=== PATIENT | female | born 1965 | race Two or more races ===

== ENCOUNTER → 2017-09-03 | Outpatient (CLI) | payer OTHER ==
[2017-09-03 15:48] LABS: BASO % 1 % (0-3); EOS # 0.1 x10^3/uL (0.0-0.7); EOS % 2 % (0-3); HEMATOCRIT 40.6 % (36.0-47.0); HEMOGLOBIN 13.9 g/dL (12.0-15.5); LYMPH # 2.5 x10^3/uL (1.0-4.8); LYMPH % 46 % (24-48); MEAN CORPUSCULAR HEMOGLOBIN 30 pg (25-35); MEAN CORPUSCULAR HGB CONC 34 g/dL (31-37); MEAN CORPUSCULAR VOLUME 89 fL (79-100); MONO # 0.4 x10^3/uL (0.0-1.1); MONO % 7 % (0-9); NEUT # 2.4 x10^3uL (1.8-7.7); NEUT % 45 % (31-73); PLATELET COUNT 225 x10^3/uL (140-400); RED BLOOD COUNT 4.57 x10^6/uL (3.50-5.40); RED CELL DISTRIBUTION WIDTH 13.7 % (11.5-14.5); WHITE BLOOD COUNT 5.4 x10^3/uL (4.0-11.0)
[2017-09-03 16:00] LABS: ALBUMIN 3.9 g/dL (3.4-5.0); ALBUMIN/GLOBULIN RATIO 1.1 (1.0-1.7); CALCIUM 9.1 mg/dL (8.5-10.1); CREATININE 0.7 mg/dL (0.6-1.0); GFR 87.9; POTASSIUM 3.8 mmol/L (3.5-5.1); TOTAL BILIRUBIN 0.4 mg/dL (0.2-1.0); TOTAL PROTEIN 7.6 g/dL (6.4-8.2)
== END | disposition home or self-care (01) ==
LOC: LAB 14:39
PROVIDERS: ATTEND Internal Medicine Gastroenterology
DX: B19.10 Unspecified viral hepatitis B without hepatic coma (principal)
CPT/HCPCS: 36415; 80053; 82105; 85025; 86706; 87340

== ENCOUNTER → 2017-09-07 | Outpatient (CLI) | payer OTHER ==
--- NOTE | 2017-09-07 17:20 | RAD ---
Abdominal ultrasound, 09/07/2017: HISTORY: Abdominal pain The gallbladder is within normal limits in size. There is no sonographic evidence of cholelithiasis. The gallbladder sarmiento are not thickened. The common hepatic duct is of normal caliber. The visualized portions of the liver are unremarkable. The spleen is of normal size. No renal abnormality is detected. The pancreas was not clearly defined due to overlying bowel. The abdominal aorta and inferior vena cava are unremarkable. No free fluid is evident in the abdomen. IMPRESSION: No significant abdominal abnormality is detected. Electronically signed by: Caden Varner MD (09/07/2017 5:17 PM) [facility]
== END | disposition home or self-care (01) ==
LOC: US 08:45
PROVIDERS: ATTEND Internal Medicine Gastroenterology
DX: R10.84 Generalized abdominal pain (principal); Z86.19 Personal history of other infectious and parasitic diseases
CPT/HCPCS: 76700

== ENCOUNTER 2017-12-14 16:33 | Emergency (ER) | payer OTHER ==
[~2017-12-14] VITALS: Ht 149.9 cm; Wt 67.1 kg
[2017-12-14 16:50] VITALS: BP 149/71
[2017-12-14] MEDS ORDERED: TRAM-48 PO (17:36)
--- NOTE | 2017-12-14 17:36 | PHYS DOC ---
Past History Past Medical History: GERD, Other Past Surgical History: Smoking: Cigarettes Alcohol Use: None Drug Use: None Adult General Chief Complaint Chief Complaint: FOOT INJURY PAIN [facility] HPI Patient is a 52 year old female who presents with complaining of a fall yesterday at home and injury to left foot without loss of consciousness or other injuries. Patient states her pain getting worse with bearing weight. Review of Systems Review of Systems Constitutional: Denies fever or chills [] Eyes: Denies change in visual acuity, redness, or eye pain [] HENT: Denies nasal congestion or sore throat [] Respiratory: Denies cough or shortness of breath [] Cardiovascular: No additional information not addressed in HPI [] GI: Denies abdominal pain, nausea, vomiting, bloody stools or diarrhea [] : Denies dysuria or hematuria [] Musculoskeletal: Denies back pain or joint pain [] Integument: Denies rash or skin lesions [] Neurologic: Denies headache, focal weakness or sensory changes [] Endocrine: Denies polyuria or polydipsia [] All other systems were reviewed and found to be within normal limits, except as documented in this note. Allergies Allergies Allergies Uncoded Allergies Type Severity Reaction Last Updated Verified UNKNOWN ANTIBIOTIC Allergy Unknown 12/14/17 Physical Exam Physical Exam Constitutional: Well developed, well nourished, mild distress, non-toxic appearance. [] HENT: Normocephalic, atraumatic Eyes: PERRLA, EOMI, conjunctiva normal, no discharge. [] Neck: Normal range of motion, no tenderness, supple, no stridor. [] Cardiovascular:Heart rate regular rhythm, no murmur [] Lungs & Thorax: Bilateral breath sounds clear to auscultation [] Skin: Warm, dry, no erythema, no rash. [] Back: No tenderness, no CVA tenderness. [] Extremities: Left foot with edema and ecchymosis in metatarsal area with tenderness, no cyanosis, no clubbing, ROM intact, no edema. [] Neurologic: Alert and oriented X 3, normal motor function, normal sensory function, no focal deficits noted. [] Psychologic: Affect normal, judgement normal, mood normal. [] Current Patient Data Vital Signs Vital Signs Date Time Temp Pulse Resp B/P (MAP) Pulse Ox O2 Delivery O2 Flow Rate FiO2 12/14/17 16:50 98.2 83 16 98 Room Air EKG EKG [] Radiology/Procedures Radiology/[place] [address] IMAGING REPORT Signed PATIENT: ELVIE HUNTER ACCOUNT: [id number] : 1965 LOCATION: ER AGE: 52 SEX: F EXAM STATUS: DEP ER ORD. PHYSICIAN: IBETH PIERCE MD REASON: injury PROCEDURE: FOOT LEFT 3V ADDENDUM Lateral image of the left foot without overlying artifact at the great toe was provided. No suspicious process at this site. Electronically signed by: Andreas Fernandez MD (12/14/2017 6:14 PM) [facility] DICTATED AND SIGNED BY: ANDREAS FERNANDEZ MD DATE: 12/14/171813 CC: IBETH PIERCE MD; PHILLY RAMIREZ ~ Examination: FOOT LEFT 3V History: FELL DOWN THE STAIRS LAST NIGHT, PAIN/BRUISING AND SWELLING OVER MEDIAL CUNEIFORM TARSAL. Comparison/Correlation: None Findings: Total 3 images of the left foot were obtained. Joint spaces are normal. No acute fracture or bony destruction. Soft tissues are unremarkable. Overlying annotation artifact at the left great toe obscures evaluation on the lateral view. The region of the medial cuneiform bone is unremarkable. Impression: No definite fracture. Consider further evaluation if occult process is a persistent concern. Electronically signed by: Andreas Fernandez MD (12/14/2017 6:02 PM) [facility] DICTATED AND SIGNED BY: ANDREAS FERNANDEZ MD DATE: 12/14/171727 CC: IBETH PIERCE MD; PHILLY RAMIREZ ~ Course & Med Decision Making Course & Med Decision Making Pertinent Imaging studies reviewed. (See chart for details) Evaluation of patient in ER showed 52-year-old female patient injury to left foot with contusion and tenderness. X-ray did not show fracture. Tae wrap was applied and crutches was provided and patient instructed to elevate her foot and apply ice. Dragon Disclaimer Dragon Disclaimer This electronic medical record was generated, in whole or in part, using a voice recognition dictation system. Departure Departure: Impression: Primary Impression: Sprain of left foot Additional Impression: Tobacco abuse counseling Disposition: 01 HOME, SELF-CARE Condition: STABLE Referrals: PHILLY RAMIREZ (PCP) Patient Instructions: Foot Sprain, Smoking Cessation, Tips For Success Additional Instructions: Apply ice on the affected area Follow-up with your primary care physician in 3-5 days Return to ER if not getting better Scripts Tramadol Hcl (ULTRAM) 50 Mg Tablet 50 MG PO PRN Q6HRS PRN for PAIN, #20 TAB Prov: IBETH PIERCE MD 12/14/17 Problem Qualifiers IBETH PIERCE MD Dec 14, 2017 17:36
--- NOTE | 2017-12-14 18:05 | RAD ---
Examination: FOOT LEFT 3V History: FELL DOWN THE STAIRS LAST NIGHT, PAIN/BRUISING AND SWELLING OVER MEDIAL CUNEIFORM TARSAL. Comparison/Correlation: None Findings: Total 3 images of the left foot were obtained. Joint spaces are normal. No acute fracture or bony destruction. Soft tissues are unremarkable. Overlying annotation artifact at the left great toe obscures evaluation on the lateral view. The region of the medial cuneiform bone is unremarkable. Impression: No definite fracture. Consider further evaluation if occult process is a persistent concern. Electronically signed by: Andreas Holt MD (12/14/2017 6:02 PM) [facility]
== END 2017-12-14 17:50 | disposition home or self-care (01) ==
LOC: ER 16:33
DX: S93.692A Other sprain of left foot, initial encounter (principal); K21.9 Gastro-esophageal reflux disease without esophagitis; F17.210 Nicotine dependence, cigarettes, uncomplicated; Z71.6 Tobacco abuse counseling; Z88.1 Allergy status to other antibiotic agents; W18.30XA Fall on same level, unspecified, initial encounter; Y93.89 Activity, other specified; Y92.098 Other place in other non-institutional residence as the place of occurrence of the external cause; Y99.8 Other external cause status
CPT/HCPCS: 73630; 99284

== ENCOUNTER 2018-08-06 17:53 | Emergency (ER) | payer OTHER ==
[~2018-08-06] VITALS: Ht 149.9 cm; Wt 59.9 kg
[~2018-08-06 17:53] MED LIST: TRAM-48 PO
--- NOTE | 2018-08-06 17:56 | ED.ADGEN ---
Past History Past Medical History: GERD, Other Past Surgical History: Smoking: Cigarettes Alcohol Use: None Drug Use: None Adult General Chief Complaint Chief Complaint ".. This is my year for ED visits... well I was cleaning my ears with a Q-tip.. and I felt some pain in Rt. ear... and I looked at the Q-tip and there was no cotton on it.. I think the cotton tip came off..." HPI HPI Patient is a 53 year old female who presents with above hx of Rt ear pain and concerns for cotton tip came off in Rt ear. Patient has a very small scratch of the canal and right ear no foreign body noted. No recent travel. No specific ill contacts. No history immunosuppression. No change in hearing. Pt. follows with [facility] for care. Review of Systems Review of Systems Constitutional: Denies fever or chills [] Eyes: Denies change in visual acuity, redness, or eye pain [] HENT: Denies nasal congestion or sore throat []complaints of pain in right ear Respiratory: Denies cough or shortness of breath [] Cardiovascular: No additional information not addressed in HPI [] GI: Denies abdominal pain, nausea, vomiting, bloody stools or diarrhea [] : Denies dysuria or hematuria [] Musculoskeletal: Denies back pain or joint pain [] Integument: Denies rash or skin lesions [] Neurologic: Denies headache, focal weakness or sensory changes [] Endocrine: Denies polyuria or polydipsia [] All other systems were reviewed and found to be within normal limits, except as documented in this note. Family History Family History Nonn contributory presentation Current Medications Current Medications Current Medications Medications (Trade) Dose Ordered Sig/Una Start Time Stop Time Status Last Admin Dose Admin Neomycin/ Polymyxin/ Hydrocortisone (Cortisporin Otic) 2 drop 1X ONCE 08/06/18 18:15 08/06/18 18:16 DC 08/06/18 18:17 2 DROP Allergies Allergies Allergies Uncoded Allergies Type Severity Reaction Last Updated Verified UNKNOWN ANTIBIOTIC Allergy Unknown 12/14/17 Physical Exam Physical Exam Constitutional: Well developed, well nourished, no acute distress, non-toxic appearance. [] HENT: Normocephalic, atraumatic, bilateral external ears normal, oropharynx moist, no oral exudates, nose normal. []Small scratch right ear canal Eyes: PERRLA, EOMI, conjunctiva normal, no discharge. [] Neck: Normal range of motion, no tenderness, supple, no stridor. [] Cardiovascular:Heart rate regular rhythm, no murmur [] Lungs & Thorax: Bilateral breath sounds clear to auscultation [] Abdomen: Bowel sounds normal, soft, no tenderness, no masses, no pulsatile masses. [] Gar Skin: Warm, dry, no erythema, no rash. [] Back: No tenderness, no CVA tenderness. [] Extremities: No tenderness, no cyanosis, no clubbing, ROM intact, no edema. [] Neurologic: Alert and oriented X 3, normal motor function, normal sensory function, no focal deficits noted. [] Psychologic: Affect anxious, judgement normal, mood normal. [] Current Patient Data Vital Signs Vital Signs Date Time Temp Pulse Resp B/P (MAP) Pulse Ox O2 Delivery O2 Flow Rate FiO2 08/06/18 18:00 98.3 85 20 96 Room Air EKG EKG [] Radiology/Procedures Radiology/Procedures [] Course & Med Decision Making Course & Med Decision Making Pertinent Labs and Imaging studies reviewed. (See chart for details). Apply Cortisporin drops 2 drops to right ear 4 times a day 2 days. Follow-up primary care. Return if any concerns. [] Final Impression Final Impression 1. Right Ear[] ear canal injury small scratch- No foreign bodies found Dragon Disclaimer Dragon Disclaimer This electronic medical record was generated, in whole or in part, using a voice recognition dictation system. Discharge Summary Visit Information Final Diagnosis Problems Medical Problems: (1) Right ear injury Status: Acute Brief Hospital Course Allergies Allergies Uncoded Allergies Type Severity Reaction Last Updated Verified UNKNOWN ANTIBIOTIC Allergy Unknown 12/14/17 Vital Signs Vital Signs Date Time Temp Pulse Resp B/P (MAP) Pulse Ox O2 Delivery O2 Flow Rate FiO2 08/06/18 18:00 98.3 85 20 96 Room Air Brief Hospital Course Ms. Lal is a 53 old female who presented with scratch to Rt. ear canal. No FOB found. Discharge Information Condition at Discharge: Stable Disposition/Orders: D/C to Home Dischare Medications Current Medications Neomycin/ Polymyxin/ Hydrocortisone (Cortisporin Otic) 2 drop 1X ONCE AD Last administered on 08/06/18at 18:17; Admin Dose 2 DROP; Start 6/22/19 at 18:15; Stop 08/06/18 at 18:16; Status DC Active Scripts Active Ultram (Tramadol HCl) 50 Mg Tablet 50 Mg PO PRN Q6HRS PRN Elisabethon Disclaimer This chart was dictated in whole or in part using Voice Recognition software in a busy, high-work load, and often noisy Emergency Department environment. It may contain unintended and wholly unrecognized errors or omissions. OZZY OCAMPO MD Aug 06, 2018 17:56
[2018-08-06 18:00] VITALS: BP 148/90
[2018-08-06] MEDS ORDERED: NEOMYCIN/POLYMYXIN/HC OTIC SUSPENSION 10ML BOTTLE. AD ONE (18:15)
== END 2018-08-06 18:24 | disposition home or self-care (01) ==
LOC: ER 17:53
DX: S00.411A Abrasion of right ear, initial encounter (principal); K21.9 Gastro-esophageal reflux disease without esophagitis; F17.210 Nicotine dependence, cigarettes, uncomplicated; Z79.899 Other long term (current) drug therapy; X58.XXXA Exposure to other specified factors, initial encounter; Y93.89 Activity, other specified; Y92.89 Other specified places as the place of occurrence of the external cause; Y99.8 Other external cause status
CPT/HCPCS: 99282

== ENCOUNTER 2020-12-27 20:43 | Emergency (ER) | payer OTHER ==
[~2020-12-27] VITALS: Ht 152.4 cm; Wt 66.0 kg
--- NOTE | 2020-12-27 21:10 | PHYS DOC ---
Past History Past Medical History: Cancer Past Surgical History: Cancer Surgery Smoking: Cigarettes Alcohol Use: None Drug Use: None Adult General HPI HPI Patient is a 55-year-old female with a past medical history of peptic ulcer disease and cirrhosis of unknown origin who presents with a chief complaint of reddish rectal bleeding over the last 5 days. States she had an episode of this a couple years ago and had a colonoscopy and EGD and was diagnosed with an ulcer. States she had not really been taken any medicines for this or adjusting her diet in any way. States she is also had some abdominal pain, generalized, 6 out of 10, with feelings of bloating and occasional lightheadedness. States she has been eating and drinking normally for her. States she is making urine normally with no blood in it. Does states she has a history of hemorrhoids. Denies any alcohol, or drug use. Denies any recent traumas, travels, illnesses, fevers, known ill contacts. Review of Systems Review of Systems Review of systems otherwise unremarkable except noted in HPI Allergies Allergies Allergies Uncoded Allergies Type Severity Reaction Last Updated Verified UNKNOWN ANTIBIOTIC Allergy Unknown 12/14/17 Physical Exam Physical Exam Constitutional: Well developed, well nourished, no acute distress, non-toxic appearance. [] HENT: Normocephalic, atraumatic, bilateral external ears normal, oropharynx moist, no oral exudates, nose normal. [] Eyes: conjunctiva normal, no discharge. [] Neck: Normal range of motion, no tenderness, supple, no stridor. [] Cardiovascular:Heart rate regular rhythm, no murmur [] Lungs & Thorax: Bilateral breath sounds clear to auscultation [] Abdomen: soft, mild generalized tenderness with no rebound or guarding no masses, no pulsatile masses : No obvious bleeding externally but does have a large external hemorrhoid that is soft and mobile with some erythema that appears that she may have been bleeding from her hemorrhoid, no gross blood noted on rectal exam. [] Skin: Warm, dry, no erythema, no rash. [] Back: no CVA tenderness. [] Extremities: No tenderness, no cyanosis, no clubbing, ROM intact, no edema. [] Neurologic: Alert and oriented X 3, normal motor function, normal sensory function, no focal deficits noted. [] Psychologic: Affect normal, judgement normal, mood normal. [] EKG EKG [] Radiology/Procedures Radiology/Procedures [] Heart Score C/O Chest Pain: No Risk Factors: Risk Factors: DM, Current or recent (<one month) smoker, HTN, HLP, family history of CAD, obesity. Risk Scores: Risk Factors: DM, Current or recent (<one month) smoker, HTN, HLP, family histo ry of CAD, obesity. Course & Med Decision Making Course & Med Decision Making Patient is a 55-year-old female who presents with red rectal bleeding for 5 days and a history of hemorrhoids Vital signs notable for hypertension. Physical exam noted above. Denied need for pain or nausea medicine. Laboratory analysis not concerning. No gross blood on rectal exam. Notable external hemorrhoid it looks like it had been bleeding. Given suppository for hemorrhoid management. Discussed all findings with patient and management of hemorrhoids at home. Advised to follow-up on Wednesday with primary care physician. Gave return precautions to the ED. Patient grateful, verbalized understanding and agreed with plan of discharge. [] Dragon Disclaimer Dragon Disclaimer This electronic medical record was generated, in whole or in part, using a voice recognition dictation system. Departure Departure: Impression: Primary Impression: External hemorrhoid, bleeding Disposition: HOME / SELF CARE / HOMELESS Referrals: PCP,GORDON (PCP) ESTER YATES Patient Instructions: Hemorrhoids Additional Instructions: Thank you for coming into the emergency department tonight and allowing us to take care of you. Please read the attached information carefully to go back over some of the things we discussed on your diagnosis of hemorrhoids. You are given a medicine here tonight, suppository to help with inflammation of your hemorrhoids. Your exam, laboratory analysis and CT scan were reassuring for no acute findings or emergencies. It is very important that you begin a regimen for hemorrhoids such as drinking plenty of fluids, some stool softeners and [id number] hemorrhoid medicine as we discussed. Please call your primary care physician first thing Wednesday morning to update on ED visit and set up a follow-up as soon as you can. Please come back with new or concerning symptoms as we discussed. YAJAIRA DALY MD Dec 27, 2020 21:10
[2020-12-27] MEDS ORDERED: IOHEXOL 300 MG/ML 75 ML VIAL. IV ONE (21:15)
[2020-12-27 22:18] LABS: BASO % 1 % (0-3); EOS % 0 % (0-3); HEMATOCRIT 40.6 % (36.0-47.0); HEMOGLOBIN 13.6 g/dL (12.0-15.5); LYMPH # 1.6 x10^3/uL (1.0-4.8); LYMPH % 29 % (24-48); MEAN CORPUSCULAR HEMOGLOBIN 30 pg (25-35); MEAN CORPUSCULAR HGB CONC 33 g/dL (31-37); MEAN CORPUSCULAR VOLUME 90 fL (79-100); MONO # 0.3 x10^3/uL (0.0-1.1); MONO % 5 % (0-9); NEUT # 3.6 x10^3uL (1.8-7.7); NEUT % 65 % (31-73); PLATELET COUNT 202 x10^3/uL (140-400); RED BLOOD COUNT 4.54 x10^6/uL (3.50-5.40); RED CELL DISTRIBUTION WIDTH 12.9 % (11.5-14.5); WHITE BLOOD COUNT 5.5 x10^3/uL (4.0-11.0)
[2020-12-27 22:24] LABS: CALCIUM 9.5 mg/dL (8.5-10.1); CREATININE 0.6 mg/dL (0.6-1.0); GFR 103.8; POTASSIUM 3.5 mmol/L (3.5-5.1)
--- NOTE | 2020-12-27 22:28 | RAD ---
CT scan of the abdomen and pelvis with contrast 12/27/2020 CLINICAL HISTORY: Abdominal pain. GI bleeding. TECHNIQUE: After the intravenous administration of 75 cc of Omnipaque 300 only, contiguous, 5 mm axia l sections were obtained through the abdomen and pelvis. One or more of the following individualized dose reduction techniques were utilized for this study: 1. Automated exposure control. 2. Adjustment of the mA and/or kV according to patient size. 3. Use of iterative reconstruction technique. FINDINGS: Comparison is made to patient's ultrasound of the abdomen dated 09/07/2017. Images through the lung bases demonstrate minimal dependent subsegmental atelectasis bilaterally. A 8 mm rounded low-attenuation lesion is seen involving the left lobe of the liver which may represent a cyst. The spleen, pancreas, adrenal glands and kidneys are within normal limits. The abdominal aorta tapers normally. The gallbladder is well-distended. No free fluid or free air is seen within the abdomen. Air and stool are seen throughout the colon. The appendix is well-visualized and is within normal limits. Images through the pelvis demonstrate the urinary bladder distended with urine. No free fluid is seen . No adnexal mass is noted. Degenerative changes are seen involving the lower thoracic and mid and lo wer lumbar spine along with both hips. IMPRESSION: No acute abnormality is seen. Electronically signed by: Lam Marvin MD (12/27/2020 10:26 PM) [id number]
[2020-12-27 22:30] LABS: ALBUMIN 4.6 g/dL (3.4-5.0); ALBUMIN/GLOBULIN RATIO 1.3 (1.0-1.7); TOTAL BILIRUBIN 0.3 mg/dL (0.2-1.0); TOTAL PROTEIN 8.2 g/dL (6.4-8.2)
[2020-12-27] MEDS ORDERED: HYDROCORTISONE ACETATE 25 MG SUPP.RECT PR PRN (22:45)
[2020-12-27 22:46] LABS: FECAL OB PT POSITIVE (NEG)
[2020-12-27 23:00] VITALS: BP 144/84
[2020-12-27] MEDS ORDERED: ACETAMINOPHEN 500 MG TABLET PO ONE (23:00)
[2020-12-27] MEDS ORDERED: PANTOPRAZOLE 40 MG TABLET. PO ONE (23:00)
[2020-12-27] MEDS ORDERED: diphenhydrAMINE HCL 25 MG CAPSULE PO ONE (23:00)
--- NOTE | 2020-12-29 13:55 | EKG ---
[address] [address] Test Date: 2020-12-27 Test Time: 21:20:42 Pat Name: ELVIE HUNTER Department: Room: Gender: F [employer] Test Engineer: MICHELLE : 1965 Requested By: YAJAIRA DALY Order Number: [id number] Reading MD: Wilman Garcia MD Measurements Intervals [place] Rate: 103 P: -24 NV: 128 QRS: -11 QRSD: 70 T: 146 QT: 340 QTc: 447 Interpretive Statements PROBABLE ATRIAL TACHYCARDIA LOW VOLTAGE NON-SPECIFIC ST/T CHANGES Electronically Signed On 12-29-2020 13:54:52 [employer] by Wilman Garcia MD
== END 2020-12-27 23:18 | disposition home or self-care (01) ==
LOC: ER 20:43
DX: K64.4 Residual hemorrhoidal skin tags (principal); F17.210 Nicotine dependence, cigarettes, uncomplicated
CPT/HCPCS: 36415; 74177; 80053; 82274; 83690; 84484; 85025; 85610; 85730; 93005; 99285; Q0163; Q9967

== ENCOUNTER → 2021-01-13 | Outpatient (CLI) | payer OTHER ==
[2020-12-27 23:00] VITALS: BP 144/84
--- NOTE | 2021-01-13 11:29 | RAD ---
EXAMINATION: CT HEAD/BRAIN WO CLINICAL HISTORY: None provided TECHNIQUE: Serial axial images without IV contrast were obtained from the vertex to the foramen magnu m. CT Dose Reduction Employed: One or more of the following individualized dose reduction techniques wer e utilized for this examination: 1. Automated exposure control 2. Adjustment of the mA and/or kV ac cording to patient size 3. Use of iterative reconstruction technique. COMPARISON: None FINDINGS: Acute Change: No evidence of acute intracranial abnormality. Hemorrhage: No evidence of acute intracranial hemorrhage. Mass Lesion/Mass Effect: No evidence of intracranial mass or extraaxial fluid collection. No signific ant mass effect. Parenchyma: Parenchyma otherwise within normal limits for age. Ventricles: Ventricles within normal limits for age. Paranasal Sinuses and Skull Base: Visualized paranasal sinuses clear. Visualized skull base and soft tissues unremarkable. IMPRESSION: No evidence of acute intracranial abnormality. Electronically signed by: Colby Cleveland DO (01/13/2021 11:26 AM) [id number]
== END ==
LOC: CT 10:02
PROVIDERS: ATTEND Family Medicine
DX: G44.209 Tension-type headache, unspecified, not intractable (principal)
CPT/HCPCS: 70450